=== PATIENT | female | born 2000 | race Caucasian/White ===

== ENCOUNTER 2023-10-05 23:21 | Emergency (ER) | payer OTHER ==
[~2023-10-05] VITALS: Ht 162.6 cm; Wt 88.0 kg
[2023-10-05 23:24] VITALS: O2SAT 97
[2023-10-06] MEDS: ACETAMINOPHEN 325MG TABLET PO ONE (02:02)
[2023-10-06] MEDS ORDERED: IBUP-2029 MT (02:41)
[2023-10-06 04:45] VITALS: BP 132/86; PULSE 88; RESP 16
[2023-10-06 05:03] VITALS: TEMP 98.2
[2023-10-06] MEDS: ACETAMINOPHEN 325MG TABLET PO NR (05:03)
== END 2023-10-06 05:07 | disposition home or self-care (01) ==
LOC: ER 23:21
DX: S89.92XA Unspecified injury of left lower leg, initial encounter (principal); M25.562 Pain in left knee; W18.39XA Other fall on same level, initial encounter; Y93.89 Activity, other specified; Y92.89 Other specified places as the place of occurrence of the external cause; Y99.8 Other external cause status
CPT/HCPCS: 99283; 73562; Z7610; L1830